=== PATIENT | male | born 1960 | race Caucasian/White ===

== ENCOUNTER 2023-04-29 12:11 | Emergency (ER) | payer OTHER, SELFPAY ==
[2023-04-29] VITALS (31 sets, daily range): BP systolic 138–175; BP diastolic 78–102; PULSE 48–66; RESP 10–22; TEMP 36.7; O2SAT 94–100; BMI 29.5
--- NOTE | 2023-04-29 12:50 | ECG_ITS ---
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
[2023-04-29 12:56] LABS: Basophils Absolute Auto 0.1 10^3/uL (0.0-0.1); Basophils Percent Auto 0.5 % (0.2-2.0); Eosinophils Absolute Auto 0.3 10^3/uL (0.0-0.7); Hematocrit 44.9 % (42.0-54.0); Hemoglobin 14.4 g/dL (14.0-18.0); Immature Granulocytes Abs Auto 0.01 10^3/uL (0.00-0.03); Immature Granulocytes Pct Auto 0.1 % (0.0-0.5); Lymphocytes Absolute Auto 4.8 10^3/uL (1.2-3.8); Lymphocytes Percent Auto 42.8 % (20.5-60.0); Mean Corpuscular HGB Conc 32.1 g/dL (29.9-35.2); Mean Corpuscular Hemoglobin 30.8 pg (25.9-34.0); Mean Corpuscular Volume 96.1 fL (80.0-94.0); Mean Platelet Volume 9.3 fL (9.5-13.5); Monocytes Absolute Auto 1.2 10^3/uL (0.3-0.8); Monocytes Percent Auto 10.5 % (1.7-12.0); Neutrophils Absolute Auto 4.8 10^3/uL (1.4-6.5); Neutrophils Percent Auto 43.1 % (43.0-75.0); Platelet Count 208 10^3/uL (150-450); Red Blood Count 4.67 10^6/uL (4.70-6.10); Red Cell Distribution Width 13.5 % (11.0-15.0); White Blood Count 11.2 10^3/uL (4.0-11.0)
[2023-04-29 13:02] LABS: INR 0.97; Prothrombin Time 10.3 sec (9.0-11.6)
[2023-04-29 13:08] LABS: Alanine Aminotransferase 21 U/L (16-63); Albumin Level 3.9 g/dL (3.4-5.0); Alkaline Phosphatase 87 U/L (46-116); Anion Gap 14.7; Aspartate Amino Transferase 13 U/L (15-37); BUN Creatinine Ratio 14.4; Bilirubin Total 0.4 mg/dL (0.2-1.0); Calcium 9.1 mg/dL (8.5-10.1); Carbon Dioxide 29.1 mmol/L (21.0-32.0); Chloride 101 mmol/L (98-107); Estimated GFR (African America >60 (>=60); Estimated GFR (Non-African Ame >60 (>=60); Glucose 100 mg/dL (74-106); Potassium 4.8 mmol/L (3.5-5.1); Sodium 140 mmol/L (136-145); Total Protein 7.9 g/dL (6.4-8.2)
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
[2023-04-29] MEDS: MORPHINE SULFATE 2 MG/ML SYRINGE IV (13:20)
[2023-04-29] MEDS: 0.9 % SODIUM CHLORIDE 1,000 ML 1000 ML IV (13:20)
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
[2023-04-29] MEDS: HYDROMORPHONE HCL 0.5 MG/0.5 ML SYRINGE IV ×3 (14:00→19:41)
[2023-04-29] MEDS: KETOROLAC TROMETHAMINE 30 MG/ML VIAL 15 MG IVP (14:01)
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
== END 2023-04-29 20:40 | disposition short-term general hospital (02) ==
PROVIDERS: Emergency Provider Emergency Medicine
DX: M54.2 Cervicalgia (principal); M79.602 Pain in left arm; R53.1 Weakness; M79.601 Pain in right arm; V43.52XA Car driver injured in collision with other type car in traffic accident, initial encounter; Z79.82 Long term (current) use of aspirin; F17.210 Nicotine dependence, cigarettes, uncomplicated
CPT/HCPCS: 36415; 70450; 71250; 72125; 73060; 73090; 73120; 80053; 84484; 85025; 85610; 93005; 96374; 96375; 96376; 99285; J1170